=== PATIENT | female | born 1940 | race Caucasian/White ===

== ENCOUNTER 2017-08-10 13:11 | Emergency (ER) | payer MEDICAID, MEDICARE ==
[~2017-08-10] VITALS: Ht 154.9 cm; Wt 91.0 kg
[2017-08-10 13:19] VITALS: Ht 154.9 cm; Wt 91.0 kg
== END 2017-08-10 20:00 | disposition left against medical advice (07) ==
LOC: E/R 13:11
DX: Z53.21 Procedure and treatment not carried out due to patient leaving prior to being seen by health care provider (principal)

== ENCOUNTER 2019-03-29 21:48 | Emergency (ER) | payer MEDICAID, MEDICARE, OTHER ==
[~2019-03-29] VITALS: Wt 90.0 kg
[2019-03-29] MEDS ORDERED: ONDANSETRON 4 MG INJ IV STA (23:20)
--- NOTE | 2019-03-29 23:23 | ERD ---
ER Documentation Chief Complaint Chief Complaint DIZZINESS TODAY, ELEVATED BP HPI 78-year-old female with history of hypertension who presents with dizziness, that is described as a vertiginous for 1 day. Other than the history of h ypertension, she has no other medical problems, her symptoms are worsened by movement, they are alleviated by standing still. She has no chest pain or shortness of breath, she had no loss of consciousness. ROS All systems reviewed and are negative except as per history of present illness. Allergies Allergies: Coded Allergies: propoxyphene (Verified Allergy, Unknown, 08/10/17) PMhx/Soc Medical and Surgical Hx: pt denies Surgical Hx History of Surgery: No Anesthesia Reaction: No Hx Neurological Disorder: No Hx Respiratory Disorders: No Hx Cardiac Disorders: Yes (HYPERLIPIDEMIA, HTN) Hx Psychiatric Problems: No Hx Miscellaneous Medical Probl: No Hx Alcohol Use: No Hx Substance Use: No Hx Tobacco Use: No Smoking Status: Never smoker Physical Exam Vitals Vital Signs Date Temp Pulse Resp B/P (MAP) Pulse Ox O2 O2 Flow FiO2 Time Delivery Rate 03/29/19 97.9 85 18 204/93 97 21:50 (130) Physical Exam Const: No acute distress Head: Atraumatic Eyes: Normal Conjunctiva ENT: Normal External Ears, Nose and Mouth. Neck: Full range of motion. No meningismus. Resp: Clear to auscultation bilaterally Cardio: Regular rate and rhythm, no murmurs Abd: Soft, non tender, non distended. Normal bowel sounds Skin: No petechiae or rashes Back: No midline or flank tenderness Ext: No cyanosis, or edema Neur: Awake and alert, cranial nerves II through XII intact, no cerebellar ataxia, normal gait Psych: Normal Mood and Affect Result Diagram: 03/29/19 2335 03/29/19 2335 Results 24 hrs Laboratory Tests Test 03/29/19 23:35 White Blood Count 9.8 10^3/ul Red Blood Count 4.22 10^6/ul Hemoglobin 12.7 g/dl Hematocrit 38.9 % Mean Corpuscular Volume 92.2 fl Mean Corpuscular Hemoglobin 30.1 pg Mean Corpuscular Hemoglobin Concent 32.6 g/dl Red Cell Distribution Width 12.2 % Platelet Count 270 10^3/UL Mean Platelet Volume 9.6 fl Immature Granulocytes % 0.300 % Neutrophils % 62.1 % Lymphocytes % 26.0 % Monocytes % 6.2 % Eosinophils % 4.5 % Basophils % 0.9 % Nucleated Red Blood Cells % 0.0 /100WBC Immature Granulocytes # 0.030 10^3/ul Neutrophils # 6.1 10^3/ul Lymphocytes # 2.6 10^3/ul Monocytes # 0.6 10^3/ul Eosinophils # 0.4 10^3/ul Basophils # 0.1 10^3/ul Nucleated Red Blood Cells # 0.0 10^3/ul Sodium Level 137 mmol/L Potassium Level 4.1 mmol/L Chloride Level 103 mmol/L Carbon Dioxide Level 26 mmol/L Anion Gap 8 Blood Urea Nitrogen 15 mg/dl Creatinine 0.72 mg/dl Est Glomerular Filtrat Rate mL/min mL/min Glucose Level 116 mg/dl Calcium Level 9.6 mg/dl Total Bilirubin 0.2 mg/dl Direct Bilirubin 0.00 mg/dl Indirect Bilirubin 0.2 mg/dl Aspartate Amino Transf (AST/SGOT) 23 IU/L Alanine Aminotransferase (ALT/SGPT) 20 IU/L Alkaline Phosphatase 80 IU/L Troponin I < 0.012 ng/ml Total Protein 7.3 g/dl Albumin 4.1 g/dl Globulin 3.20 g/dl Albumin/Globulin Ratio 1.28 Current Medications Medications Dose Sig/Arlen Start Time Status Last (Trade) Ordered Route PRN Stop Time Admin Dose Reason Admin Meclizine 25 mg ONCE ONCE 03/29/19 DC 03/29/19 HCl PO 23:30 23:53 (Antivert) 03/29/19 23:31 Ondansetron 4 mg ONCE STAT 03/29/19 DC 03/29/19 HCl (Zofran IV 23:20 23:53 Inj) 03/29/19 23:23 Sodium 1,000 ml @ Q1H STAT 03/30/19 DC 03/30/19 Chloride 1,000 mls/hr IV 00:34 01:27 03/30/19 01:33 IV Flush 10 ml STK-MED 03/30/19 DC 03/30/19 (NS 10 ml) ONCE .ROUTE 00:56 01:07 03/30/19 00:57 Sodium 100 ml @ ud STK-MED 03/30/19 DC 03/30/19 Chloride ONCE .ROUTE 00:56 01:07 03/30/19 00:57 Iohexol 100 ml @ ud STK-MED 03/30/19 DC 03/30/19 ONCE .ROUTE 00:56 01:07 03/30/19 00:57 EKG: Rate/Rhythm: Normal Sinus Rhythm QRS, ST, T-waves: No changes consistent w/ acute ischemia Impression: No evidence of ischemia or arrhythmia [place] [id number] Radiology Main Line: [phone] DIAGNOSTIC IMAGING REPORT Patient: ADIN MATHEWS : 1940 Age: 78 Sex: F MR #: [id number] DOS: 03/30/19 0034 Ordering MD: HOMAR CARREON MD Location: E/R Room/Bed: PROCEDURE: CTA head and neck CLINICAL INDICATION: 78-year-old female. History of hypertension. Possible acute stroke. TECHNIQUE: The study was performed utilizing a multi-slice CT scanner. Pre and postcontrast high-resolution axial sections were obtained through the head and neck. Coronal and sagittal as well as maximal intensity projection reformations were obtained. 3-D images were made. NASCET criteria were utilized in measuring stenoses. One or more the following dose reduction techniques were utilized: Automated exposure control, adjustment of the mA/ or kV according to patient's size, or use of iterative reconstruction technique. DICOM images are available for review. DICOM images are available for review. The images were reviewed on a PACS workstation. The total CTDIvol is 70.11 mGy and the DLP is 669.08 mGy-cm. CONTRAST: 100 cc Omnipaque 350 IV. COMPARISON: CT brain 03/29/2019 FINDINGS: CTA NECK: Aortic arch and great vessels: No arch aneurysm or dissection flap. The innominate and left common carotid artery share a common trunk origin. No hemodynamically significant origin stenosis. Normal right common carotid artery origin. Anterior circulation: Contrast opacifies the left and right common, internal and external carotid arteries. No hemodynamically significant stenosis at the level of the carotid bifurcations or involving the internal carotid arteries. Right internal carotid artery measures 3.5 mm. Left internal carotid artery measures 4.1 mm. Posterior circulation: Contrast opacifies the left and right vertebral arter ies. The left vertebral artery is dominant. Beam hardening artifact from dental metal degrades images of the right vertebral artery at the level of the C2 foramen transversarium. No hemodynamically significant stenosis at the vertebral artery origins. No dissection flap identified. New CTA BRAIN: Posterior circulation: Contrast opacifies the intradural vertebral arteries, left dominant. No basilar artery stenosis, intraluminal filling defect or basilar tip aneurysm. Contrast opacifies the left and right superior cerebellar and posterior cerebral arteries. Anterior circulation: Contrast opacifies the distal left and right internal carotid arteries, the anterior and middle cerebral arteries, the opercular and sylvian branches arising from the left and right middle cerebral arteries. The anterior communicating artery is visualized. Posterior communicating arteries are not identified. No hemodynamically significant stenosis demonstrated. No intraluminal filling defect or abrupt vessel cutoff. No [place] aneurysm. Additional findings: Chronic left sphenoid sinus disease. There is calcification in the center of the left sphenoid sinus suggesting superimposed fungus infection. IMPRESSION: 1. Negative CT angiogram of the neck and head. 2. Chronic left sphenoid sinus disease with suspected superimposed fungus infection. RP physician electrician office requested to call report by the undersigned at 0136 hours P S T. RPTAT: [facility] Physician Emilee Date Time Electronically viewed and signed by Physician Emilee on 03/30/2019 01:37 RS/ CC: HOMAR CARREON MD [phone] Procedures/MDM Is an 78-year-old female presents for evaluation of dizziness. Patient had no syncope or presyncope, no chest pain, her lab work-up was overall unremarkable with no evidence of leukocytosis no metabolic acidosis, and her troponin was negative. CT brain and CTA were also negative for acute findings at this point I suspect most likely peripheral cause, patient has no evidence of encephalopathy, and she is otherwise stable for discharge home, at discharge she was in no distress. EKG: Rate/Rhythm: Normal Sinus Rhythm QRS, ST, T-waves: No changes consistent w/ acute ischemia Impression: No evidence of ischemia or arrhythmia Departure Diagnosis: Primary Impression: Hypertension Hypertension type: unspecified Qualified Codes: I10 - Essential (primary) hypertension Condition: Stable HOMAR CARREON MD March 29, 2019 23:23
[2019-03-29] MEDS ORDERED: MECLIZINE 12.5 MG TAB PO ONE (23:30)
[2019-03-30] MEDS ORDERED: SOD CHLORIDE 0.9% 1,000 ML IV STA (00:34)
[2019-03-30] MEDS ORDERED: IOHEXOL 100 ML ONE (00:56)
[2019-03-30] MEDS ORDERED: SOD CHLORIDE 0.9% 100 ML ONE (00:56)
[2019-03-30 03:10] VITALS: BP 164/89; PULSE 72; RESP 16
== END 2019-03-30 03:13 | disposition home or self-care (01) ==
LOC: E/R 21:48
DX: I10 Essential (primary) hypertension (principal)
CPT/HCPCS: 70450; 70496; 70498; 80053; 84484; 85025; 93005; 96374; 99285; J2405; J7030; Q9967

== ENCOUNTER 2019-05-29 11:51 | Emergency (ER) | payer OTHER ==
[~2019-05-29] VITALS: Ht 157.5 cm; Wt 91.0 kg
[2019-05-29 12:05] VITALS: Ht 157.5 cm; Wt 91.0 kg
--- NOTE | 2019-05-29 13:07 | ERD ---
ER Documentation Chief Complaint Chief Complaint PAIN TO BELOW LEFT KNEE AREA FOR 3 WEEKS. CMS INTACT HPI This is a 78-year-old female patient who presents emergency room with complaint of pain to her proximal left lower extremity. States pain started after having her legs elevated for approximately 3 hours while crocheting 3 weeks ago. [place] sharp pain when she went to put her feet onto the ground. She has seen her PMD Dr. Casarez for the same who prescribed her Naprosyn 1 week ago and she states is not working. Patient is wheelchair-bound with very limited ambulation, states her limited ambulation has decreased even more since her pain started. Does not smoke, no hormone therapy, no history of DVT. Chronic medical problems include hypertension, hypercholesteremia, restless leg syndrome. ROS All systems reviewed and are negative except as per history of present illness. Medications Home Meds Active Scripts Diclofenac Sodium* (Voltaren* Gel) 1% -100 Gm Gel, 4 GM TOP QID for KNEE PAIN for 14 Days, #100 G Prov:NELLY MCKEON ECG TECHNICIAN 05/29/19 Allergies Allergies: Coded Allergies: propoxyphene (Verified Allergy, Unknown, 08/10/17) PMhx/Soc History of Surgery: No Anesthesia Reaction: No Hx Neurological Disorder: No Hx Respiratory Disorders: No Hx Cardiac Disorders: Yes (HYPERLIPIDEMIA, HTN) Hx Psychiatric Problems: No Hx Miscellaneous Medical Probl: No Hx Alcohol Use: No Hx Substance Use: No Hx Tobacco Use: No Smoking Status: Never smoker FmHx Family History: No diabetes, No coronary disease, No other Physical Exam Vitals Vital Signs Date Temp Pulse Resp B/P (MAP) Pulse Ox O2 O2 Flow FiO2 Time Delivery Rate 05/29/19 98.2 79 18 142/85 98 Room Air 14:09 (104) 05/29/19 98.1 96 18 148/87 96 12:05 (107) Physical Exam Const: No acute distress Head: Atraumatic Eyes: Normal Conjunctiva ENT: Normal External Ears, Nose and Mouth. Neck: Full range of motion. No meningismus. Resp: Clear to auscultation bilaterally Cardio: Regular rate and rhythm, no murmurs Abd: Soft, non tender, non distended. Normal bowel sounds Skin: No petechiae or rashes Back: No midline or flank tenderness Ext: No cyanosis, no bruising, no petechiae. LLE: +2 dorsal and tibial pulse, +swelling and tenderness medial proximal LLE, normothermic, no bony tenderness, patella aligned (pt obese with large lower extremities) Neur: Awake and alert Psych: Normal Mood and Affect Procedures/MDM PROCEDURES/MDM DIAGNOSTIC IMAGING: Read by radiologist. US LLE FINDINGS: There is normal compressibility and flow within the left common femoral, femoral, posterior tibial, peroneal and popliteal veins. IMPRESSION: No sonographic evidence for deep venous thrombosis. PROCEDURES: none -Medications: Patient declines MDM: This is an 78-year-old female patient presents emergency room with concern of left proximal lower extremity pain and swelling with a 3-week duration. As patient denies injury and is primarily wheelchair bound and has prolonged periods of sitting, concern was for DVT of the lower extremity. Ultrasound did not reveal thrombus or decreased circulation. Patient was fitted with Caleb wrap for comfort and instructed on rice method. Patient instructed to continue to use her Naprosyn, apply ice, follow-up with her primary care provider. Patient was also prescribed a Voltaren gel for topical use. Patient's extremity symptoms have stabilized while they have been evaluated in the department and are appropriate for outpatient follow up. This patient has been evaluated for knee pain. The physical exam of the knee navarro s not reveal ligamentous or meniscal injury at this time. There is swelling in the proximal lower leg, but no in the joint. There is low suspicion for this being a septic joint as the patient is afebrile without recent illness, the joint is normothermic. No evidence of compartment syndrome, neurologic injury, vascular injury, open joint, open fracture, tendon laceration, or foreign body. DISPOSITION and PLAN: RX: Voltaren gel The patient has been discharge home to follow-up with community physician. Departure Diagnosis: Primary Impression: Pain of left leg Condition: Stable Comments patient evaluated with ECG TECHNICIAN, agree with assessment and plan NELLY Amaral NP May 29, 2019 13:07 TRICIA KEITH DO Jun 01, 2019 20:02
[2019-05-29] MEDS ORDERED: DICL100G37 TOP (13:54)
[2019-05-29 14:09] VITALS: BP 142/85; PULSE 79; RESP 18
== END 2019-05-29 14:09 | disposition home or self-care (01) ==
LOC: FTE 11:51
DX: M79.605 Pain in left leg (principal); I10 Essential (primary) hypertension
CPT/HCPCS: 93971